=== PATIENT | female | born 1955 | race African-American/Black ===

== ENCOUNTER 2023-05-15 05:43 | Inpatient (IN) | payer MEDICARE, MEDICAID ==
[~2023-05-15] VITALS: Ht 160 cm; Wt 60.6 kg
[2023-05-15 06:05] VITALS: PULSE 134; RESP 34; O2SAT 100
[2023-05-15] MEDS: MIDAZOLAM HCL 5 MG/ML-1ML VIAL IV ONE (06:05)
[2023-05-15] MEDS: SODIUM CHLORIDE 0.9% 1,000 ML IV ONE ×2 (06:36→08:20)
[2023-05-15 06:46] LABS: Basophils # (auto) 0 10 ^3/uL (0-0.2); Basophils % (auto) 0.1 % (0.0-2.0); Eosinophils # (auto) 0 10 ^3/uL (0-0.8); Eosinophils % (auto) 0.1 % (0.0-7.0); Hematocrit 50.1 % (36.0-46.0); Hemoglobin 16.4 g/dL (12.2-16.2); Lymphocytes # (auto) 1.2 10 ^3/uL (0.4-5.4); Lymphocytes % (auto) 11.7 % (10.0-50.0); Mean Corpuscular Hemoglobin 30.7 pg (28.0-32.0); Mean Corpuscular Hgb Conc. 32.7 g/dL (32.0-36.0); Mean Corpuscular Volume 93.7 fL (80.0-100.0); Monocytes # (auto) 0.9 10 ^3/uL (0-1.3); Monocytes % (auto) 8.8 % (0.0-12.0); Neutrophils # (auto) 7.8 10 ^3/uL (1.6-8.6); Neutrophils % (auto) 79.3 % (37.0-80.0); Red Blood Cells 5.35 10^6/uL (4.0-5.20); Red Cell Distribution Width 14.4 % (11.8-14.3); White Blood Cell 9.9 10^3/uL (4.4-10.8)
[2023-05-15 07:21] LABS: Alanine Aminotransferase 26 U/L (7-40); Albumin 4.8 g/dL (3.2-4.8); Alkaline Phosphatase 110 U/L (46-116); Anion Gap 7 (5-15); Aspartate Aminotransferase 62 U/L (13-40); BUN/Creatinine Ratio 10.8 (10.0-20.0); Blood Urea Nitrogen 7 mg/dL (9-23); Carbon Dioxide 25 mmol/L (20-30); Chloride 105 mmol/L (98-107); Glucose 119 mg/dL (74-106); Potassium 3.4 mmol/L (3.5-5.1); Sodium 137 mmol/L (136-145)
[2023-05-15 07:22] LABS: Bilirubin, Total 1.2 mg/dL (0.2-1.0); Total Protein 7.8 g/dL (5.7-8.2)
[2023-05-15] MEDS: levETIRAcetam 1000 mg/100ml 100 ML IV ONE (08:20)
[2023-05-15 08:57] VITALS: PULSE 81; RESP 17; O2SAT 100
[2023-05-15] MEDS ORDERED: DOCUSATE SOD 100 MG CAP PO PRN (09:15)
[2023-05-15] MEDS ORDERED: ONDANSETRON HCL 4 MG/2 ML VIAL IV PRN (09:15)
[2023-05-15] MEDS: SODIUM CHLORIDE 0.9% 1,000 ML IV SCH (09:30)
[2023-05-15] MEDS: SOD CHL 0.9%/ KCL 20MEQ 1,000 ML IV SCH (11:30)
[2023-05-15] MEDS: LORazepam 2MG/ML-1ML VIAL IV PRN (17:11)
[2023-05-15 19:45] VITALS: PULSE 92; RESP 15; O2SAT 98
[2023-05-15 20:52] LABS: Folate (Folic Acid) > 24.00 ng/mL (>5.38); Free T4 (Free Thyroxine) 1.07 ng/dL (0.89-1.76)
[2023-05-15] MEDS ORDERED: levETIRAcetam 1000 mg/100ml 100 ML IV SCH (21:20)
[2023-05-15] MEDS: HALOPERIDOL LACTATE 5 MG/ML INJ VIAL IM ONE (21:46)
[2023-05-15] MEDS: levETIRAcetam 1000 mg/100ml 100 ML IV SCH (22:46)
[2023-05-16] MEDS: diphenhdrAMINE HCL 50 MG/1 ML VL IV ONE (02:59)
[2023-05-16] MEDS: diphenhdrAMINE HCL 50 MG/1 ML VL ONE (03:00)
[2023-05-16 05:25] LABS: Basophils # (auto) 0 10 ^3/uL (0-0.2); Basophils % (auto) 0.2 % (0.0-2.0); Eosinophils # (auto) 0 10 ^3/uL (0-0.8); Eosinophils % (auto) 0.4 % (0.0-7.0); Hematocrit 41.3 % (36.0-46.0); Hemoglobin 13.5 g/dL (12.2-16.2); Lymphocytes # (auto) 2.4 10 ^3/uL (0.4-5.4); Mean Corpuscular Hemoglobin 30.4 pg (28.0-32.0); Mean Corpuscular Hgb Conc. 32.6 g/dL (32.0-36.0); Mean Corpuscular Volume 93.3 fL (80.0-100.0); Monocytes # (auto) 0.8 10 ^3/uL (0-1.3); Monocytes % (auto) 7.3 % (0.0-12.0); Neutrophils # (auto) 7.3 10 ^3/uL (1.6-8.6); Neutrophils % (auto) 69.1 % (37.0-80.0); Nucleated Red Blood Cells % 0.1 %; Red Blood Cells 4.43 10^6/uL (4.0-5.20); Red Cell Distribution Width 13.9 % (11.8-14.3); White Blood Cell 10.6 10^3/uL (4.4-10.8)
[2023-05-16 05:41] LABS: Alanine Aminotransferase 18 U/L (7-40); Albumin 4.2 g/dL (3.2-4.8); Alkaline Phosphatase 88 U/L (46-116); Anion Gap 9 (5-15); Aspartate Aminotransferase 47 U/L (13-40); Calcium 9.3 mg/dL (8.5-10.1); Carbon Dioxide 21 mmol/L (20-30); Chloride 106 mmol/L (98-107); Glucose 83 mg/dL (74-106); Potassium 3.5 mmol/L (3.5-5.1); Sodium 136 mmol/L (136-145)
[2023-05-16 05:42] LABS: BUN/Creatinine Ratio 9.4 (10.0-20.0); Bilirubin, Total 1.6 mg/dL (0.2-1.0); Blood Urea Nitrogen < 5 mg/dL (9-23); Total Protein 7.1 g/dL (5.7-8.2)
[2023-05-16 07:30] VITALS: PULSE 69; RESP 19; O2SAT 98
[2023-05-17] MEDS: HALOPERIDOL LACTATE 5 MG/ML INJ VIAL IM PRN (01:31)
[2023-05-17] MEDS: ACETAMINOPHEN 325 MG TAB PO ONE (03:25)
[2023-05-17] MEDS ORDERED: LORazepam 2MG/ML-1ML VIAL IM ONE (04:45)
[2023-05-17] MEDS: LORazepam 2MG/ML-1ML VIAL IV ONE (04:50)
[2023-05-17 08:00] VITALS: PULSE 94; RESP 23; O2SAT 98
[2023-05-17] MEDS ORDERED: FOLIC ACID 1 MG, MULTIPLE VITAMIN 10 ML, MAGNESIUM SULF SDV 50% 8 MEQ, THIAMINE INJ 100... INJ SCH (12:00)
[2023-05-17] MEDS: chlordiazePOXIDE HCL 5 MG CAP PO PRN (14:34)
[2023-05-17 19:30] VITALS: PULSE 90; RESP 17; O2SAT 98
[2023-05-17 22:00] VITALS: BP 114/79; PULSE 98; RESP 19; TEMP 98.5; O2SAT 98
[2023-05-18] VITALS (7 sets, daily range): BP systolic 131–160; BP diastolic 67–97; PULSE 78–131; RESP 17–20; TEMP 97.2–98.5; O2SAT 97–100
[2023-05-18] MEDS: FOLIC ACID 1 MG, MULTIPLE VITAMIN 10 ML, MAGNESIUM SULF SDV 50% 8 MEQ, THIAMINE INJ 100... INJ SCH (18:00)
[2023-05-18] MEDS: levETIRAcetam 500 MG TAB PO SCH (21:24)
[2023-05-19 05:00] VITALS: BP 137/80; PULSE 108; RESP 18; TEMP 97.6; O2SAT 99
[2023-05-19 08:00] VITALS: PULSE 79; RESP 17; O2SAT 97
[2023-05-19 08:53] VITALS: BP 142/84; PULSE 100; RESP 16; TEMP 99.2; O2SAT 95
[2023-05-19 12:14] VITALS: BP 143/90; PULSE 87; RESP 16; TEMP 98.8; O2SAT 93
[2023-05-19 19:30] VITALS: PULSE 88; PULSE 90; RESP 17; O2SAT 98
[2023-05-19 22:00] VITALS: BP 98/64; PULSE 96; RESP 19; TEMP 98; O2SAT 100
[2023-05-20 08:00] VITALS: PULSE 90; PULSE 95; RESP 18; O2SAT 98
[2023-05-20 09:00] VITALS: BP 150/85; PULSE 100; RESP 18; TEMP 98.6; O2SAT 100
[2023-05-20] MEDS ORDERED: CHL25C PO (11:36)
[2023-05-20] MEDS ORDERED: THIA100T13 PO (11:43)
[2023-05-20] MEDS ORDERED: FOLI-119 PO (11:43)
[2023-05-20] MEDS ORDERED: LEVE100012 PO (11:43)
[2023-05-20] MEDS ORDERED: LORA-1121 PO (11:44)
[2023-05-20 13:00] VITALS: BP 132/81; PULSE 99; RESP 20; TEMP 99; O2SAT 97
[2023-05-20 15:59] VITALS: BP 136/89; PULSE 82; RESP 20; TEMP 97.9; O2SAT 98
== END 2023-05-20 16:25 | disposition home or self-care (01) | DRG 101 ==
LOC: ER 05:43 → EDBD 05:43 → OVERFLOW 09:06 → TELE-EAST 05-17 18:54 → EAST 05-17 19:04 → TELE-EAST 05-17 19:05
PROVIDERS: ADMIT Nurse Practitioner Family; ATTEND Family Medicine
DX: G40.901 Epilepsy, unspecified, not intractable, with status epilepticus (principal); F05 Delirium due to known physiological condition; E87.6 Hypokalemia; F03.90 Unspecified dementia, unspecified severity, without behavioral disturbance, psychotic disturbance, mood disturbance, and anxiety; I16.0 Hypertensive urgency
CPT/HCPCS: 36415; 70450; 71045; 80053; 80320; 82607; 82746; 84439; 84443; 84484; 85025; 93005; 99291; G0378; J2250